=== PATIENT | female | born 1985 | race Caucasian/White ===

== ENCOUNTER 2019-06-26 07:52 | Day surgery (SDC) | payer MEDICAID ==
[~2019-06-26 07:52] MED LIST: Bupivacaine 0.5% 30 ML SDV ONE; Clindamycin Phosphate in D5W 600 MG in Premix Bag 1 BAG IV ONE; Lactated Ringers 1,000 ML IV SCH; Lidocaine 1% 20 ML MDV ONE; Lidocaine 2% 5 ML SDV ONE; Propofol 200 MG/20 ML SDV ONE; Sodium Chloride 0.9% 10 ML SDV IV PRN; Sodium Chloride 0.9% 10 ML Syringe FLUSH PRN; Sodium Chloride 0.9% 2.5 ML Syringe FLUSH PRN; fentaNYL 100 MCG/2 ML SDV ONE
--- NOTE | 2019-06-26 09:59 | PCM.PREANE ---
Preanesthetic Assessment - Anesthesia/Transfusion/Family Hx Anesthesia History: Prior Anesthesia Without Reaction Family History of Anesthesia Reaction: No Transfusion History: No Prior Transfusion(s) Intubation History: Unknown - Review of Systems General: No Symptoms Pulmonary: No Symptoms Cardiovascular: No Symptoms Gastrointestinal: No Symptoms Neurological: No Symptoms Other: Reports: None - Physical Assessment NPO Status Date: 06/25/19 NPO Status Time: 23:00 O2 Sat by Pulse Oximetry: 99 Respiratory Rate: 16 Vital Signs: Last Vital Signs Temp 36.2 C 06/26/19 08:25 Pulse 73 06/26/19 08:25 Resp 16 06/26/19 08:25 BP 121/79 06/26/19 08:25 Pulse Ox 99 06/26/19 08:25 Height: 5 ft 3 in Weight: 56.699 kg ASA Class: 2 Mental Status: Alert & Oriented x3 Airway Class: Mallampati = 2 Dentition: Reports: Broken Tooth/Teeth (multiple), Missing Tooth/Teeth (multiple ), Caries (multiple) Thyro-Mental Finger Breadths: 3 Mouth Opening Finger Breadths: 3 ROM/Head Extension: Full Lungs: Clear to Auscultation, Normal Respiratory Effort Cardiovascular: Regular Rate, Regular Rhythm - Allergies Allergies/Adverse Reactions: Allergies Allergy/AdvReac Type Severity Reaction Status Date / Time cephalexin [From Keflex] Allergy Rash Verified 06/21/19 09:57 - Blood Blood Available: No - Anesthesia Plan Pre-Op Medication Ordered: None - Acknowledgements Anesthesia Type Planned: General Anesthesia Pt an Appropriate Candidate for the Planned Anesthesia: Yes Alternatives and Risks of Anesthesia Discussed w Pt/Guardian: Yes Pt/Guardian Understands and Agrees with Anesthesia Plan: Yes PreAnesthesia Questionnaire HEENT History: Reports: None Cardiovascular History: Reports: None Respiratory History: Reports: None Gastrointestinal History: Reports: None Genitourinary History: Reports: None OPERATOR HELPER History: Reports: Other (See Below) Other OB/BYN History: fibrocystic breast disease Musculoskeletal History: Reports: Fracture Neurological History: Reports: None Psychiatric History: Reports: Depression Endocrine/Metabolic History: Reports: None Hematologic History: Reports: None Immunologic History: Reports: None Oncologic (Cancer) History: Reports: None Dermatologic History: Reports: None - Past Surgical History Head Surgeries/Procedures: Reports: None HEENT Surgical History: Reports: None Cardiovascular Surgical History: Reports: None Respiratory Surgical History: Reports: None GI Surgical History: Reports: None Female Surgical History: Reports: Breast Biopsy Other Female Surgeries/Procedures: breast bx left x2 & rt x1 Endocrine Surgical History: Reports: None Neurological Surgical History: Reports: None Musculoskeletal Surgical History: Reports: ORIF Other Musculoskeletal Surgeries/Procedures:: ORIF fx left arm with plate and screws Oncologic Surgical History: Reports: Biopsy of Breast Dermatological Surgical History: Reports: None - SUBSTANCE USE Smoking Status *Q: Current Every Day Smoker Tobacco Use Within Last Twelve Months: Cigarettes Days Per Week of Alcohol Use: 1 Recreational Drug Use History: No - HOME MEDS Home Medications: Home Meds Citalopram Hydrobromide [Celexa] 20 mg PO DAILY 06/21/19 [History] Naproxen 1 tab PO ASDIRECTED PRN 06/21/19 [History] - CURRENT (IN HOUSE) MEDS Current Meds: Current Medications Lactated Ringer's (Ringers, Lactated) 1,000 mls @ 125 mls/hr IV ASDIRECTED JILLIAN Last Admin: 06/26/19 08:55 Dose: 125 mls/hr Sodium Chloride (Saline Flush) 10 ml FLUSH ASDIRECTED PRN PRN Reason: Keep Vein Open Sodium Chloride (Saline Flush) 2.5 ml FLUSH ASDIRECTED PRN PRN Reason: Keep Vein Open Sodium Chloride (Normal Saline) 10 ml IV ASDIRECTED PRN PRN Reason: IV Use Discontinued Medications Bupivacaine HCl (Marcaine 0.5%) Confirm Administered Dose 30 ml .ROUTE .STK-MED ONE Stop: 06/26/19 07:31 Fentanyl (Sublimaze) Confirm Administered Dose 100 mcg .ROUTE .STK-MED ONE Stop: 06/26/19 07:30 Clindamycin Phosphate 600 mg/ (Premix) 50 mls @ 100 mls/hr IV ONETIME ONE Stop: 06/22/19 15:32 Lidocaine (Xylocaine-Mpf 2%) Confirm Administered Dose 5 ml .ROUTE .STK-MED ONE Stop: 06/26/19 07:30 Lidocaine HCl (Xylocaine 1%) Confirm Administered Dose 20 ml .ROUTE .STK-MED ONE Stop: 06/26/19 07:31 Propofol (Diprivan 20 Ml) Confirm Administered Dose 400 mg .ROUTE .STK-MED ONE Stop: 06/26/19 07:30 Propofol (Diprivan 20 Ml) Confirm Administered Dose 200 mg .ROUTE .[facility] ONE Stop: 06/26/19 07:31
[2019-06-26] MEDS ORDERED: Rocuronium 100 MG/10 ML Syringe ONE (10:03)
[2019-06-26] MEDS ORDERED: Clindamycin Phosphate in D5W 600 MG in Premix Bag 1 BAG IV ONE ×2 (10:45)
[2019-06-26] MEDS ORDERED: fentaNYL 100 MCG/2 ML SDV ONE (11:04)
[2019-06-26] MEDS ORDERED: Octyl 2-Cyanoacrylate 1 Tube ONE (11:17)
--- NOTE | 2019-06-26 11:34 | PCM.OPNOTE ---
- General Post-Op/Procedure Note Date of Surgery/Procedure: 06/26/19 Operative Procedure(s): bilateral breast mass excision Findings: left breast mass 5x5 cm, right breast mass 5x3 cm Pre Op Diagnosis: fibrocystic breast masses Post-Op Diagnosis: fibrocystic breast masses Anesthesia Technique: General ET Tube Primary Surgeon: Natalee Verdugo Pathology: left breast mass 5x5 cm, right breast mass 5x3 cm Fluid Replacement, Intraop: 800 EBL in mLs: 5 Condition: Good
[2019-06-26] MEDS ORDERED: Acetaminophen/oxyCODONE 325-5 MG Tab PO PRN (11:58)
[2019-06-26] MEDS: fentaNYL 100 MCG/2 ML SDV IVPUSH PRN ×2 (12:02→12:17)
[2019-06-26] MEDS ORDERED: Ketorolac 30 MG/ML SDV IVPUSH ONE (12:06)
[2019-06-26] MEDS ORDERED: Acetaminophen 1,000 MG in Premix Bag 1 BAG IV ONE (12:06)
[2019-06-26] MEDS ORDERED: Bupivacaine 0.5% 30 ML SDV ONE (12:14)
--- NOTE | 2019-06-26 12:30 | PCM.POSTAN ---
POST ANESTHESIA ASSESSMENT - MENTAL STATUS Mental Status: Alert, Oriented - RESPIRATORY Respiratory Status: Respiratory Rate WNL, Airway Patent, O2 Saturation Stable - CARDIOVASCULAR CV Status: Pulse Rate WNL, Blood Pressure Stable - GASTROINTESTINAL GI Status: No Symptoms - PAIN Pain Score: 6 - POST OP HYDRATION Hydration Status: Adequate & Stable - OBSERVATIONS Free Text/Narrative:: no anesthesia problems
[2019-06-26] MEDS ORDERED: oxyCODONE 5 MG Tab PO PRN (12:46)
--- NOTE | 2019-06-26 13:18 | OR ---
SURGEON: NATALEE VERDUGO MD DATE OF PROCEDURE: 06/26/2019 PREOPERATIVE DIAGNOSIS: Bilateral breast masses. POSTOPERATIVE DIAGNOSIS: Bilateral breast masses. PROCEDURE PERFORMED: Excision, bilateral breast masses. PRIMARY SURGEON: Natalee Verdugo MD. JOURNEYMAN WIREMAN: tax accounting assistant: Radha Mercado DO. ANESTHESIA: General endotracheal anesthesia. FLUIDS: 800 mL of crystalloid. ESTIMATED BLOOD LOSS: 5 mL. FINDINGS: A 5 x 5 cm round mass in the left breast consistent with fibroadenoma, a 5 x 3 cm mass in the right breast with a similar appearance. COMPLICATIONS: None. INDICATIONS: The patient is a 33-year-old female with a history of fibrocystic breast disease. She has had fibroadenomas removed in the past. She has 2 large masses in each breast which are painful and large. Preoperative ultrasound showed that the mass did show characteristics of fibroadenomas. Given these findings, the decision was made to perform excision of these masses to send them to Pathology. The patient and I discussed the procedure; expected perioperative course; and risks including bleeding, infection, or damage to surrounding structures. The patient verbalized understanding and wishes to proceed. PROCEDURE IN DETAIL: The patient was brought into the OR and placed on the OR table in supine position. A time-out was completed verifying the patient's name, age, date of , allergies, and procedure to be performed. General endotracheal anesthesia was induced. The chest was prepped and draped in usual standard fashion. The patient had previous scars along her areolar border from previous fibroadenoma excisions. I anesthetized these areas with 0.5% Marcaine plain. I started my surgery on the left side. I opened up her previous incision with a 15 blade. This was carried from the 12 o'clock to 3 o'clock position around the left areolar border. Cautery was used to dissect down to the level of the breast tissue. I then dissected down to the level of the breast mass. A firm mass with a white capsule was noted. This was grasped with an Allis clamp. Then, using a combination of cautery and blunt dissection, I dissected around the mass. Once it was completely free of the subcutaneous tissues, it was removed and placed on the back table. It was completely round and measured 5 cm in diameter. This was sent to Pathology, labeled as left breast mass. I then packed the wound with saline-soaked gauze and turned my attention to the right breast. I used a 15 blade to open up her previous scar. This scar ran from the 6 o'clock to 12 o'clock position along the lateral half of her areolar border. Cautery was used to then dissect down into the level of the breast tissue. The right breast mass was located at the 10 o'clock position and more in the upper outer quadrant. I dissected along the subcutaneous tissue up into the upper outer quadrant. I then used cautery to dissect through the breast tissue down to the level of the mass. The lateral border of the mass was grasped with an Allis. I then used a combination of blunt dissection and electrocautery to dissect the mass free of the surrounding tissue. This was somewhat difficult given that the mass was close to the chest wall. Once I mobilized from lateral to medial, I was then able to deliver the mass up through the breast incision. It was then removed from its posterior attachments. It was placed on the back field. It was more oblong in shape and size. It measured 5 cm x 3 cm. It was sent to Pathology, labeled as right breast mass. I then inspected both my operative field. Hemostasis was achieved using electrocautery. I then closed both incisions in similar fashion. Layers of interrupted 3-0 Vicryl's were used to close the breast tissue and subcutaneous fat layer. The skin was closed with a running 4-0 Monocryl stitch. Dermabond and sterile dressings were applied. The patient tolerated the procedure well and was taken to PACU in stable condition. NAHOMI LANDRUM /[id number]
== END 2019-06-26 13:42 | disposition home or self-care (01) ==
LOC: MW.SDS 07:52
PROVIDERS: ATTEND Surgery
DX: D24.2 Benign neoplasm of left breast (principal); D24.1 Benign neoplasm of right breast; F17.210 Nicotine dependence, cigarettes, uncomplicated; Z86.018 Personal history of other benign neoplasm; Z88.1 Allergy status to other antibiotic agents; Z79.899 Other long term (current) drug therapy; Z98.890 Other specified postprocedural states
CPT/HCPCS: 19120; 88305; A9270; J0131; J1885; J2001; J2704; J3010; J3490; J7120; 00400